=== PATIENT | male | born 1955 | race Caucasian/White ===

== ENCOUNTER 2017-03-14 09:09 | Emergency (ER) | payer OTHER ==
[2017-03-14] MEDS ORDERED: HYDROmorphone 0.5 MG/0.5 ML Syringe IVPUSH ONE (09:47)
--- NOTE | 2017-03-14 09:47 | EDM.PDOC ---
ED HPI LOWER BACK PAIN/INJURY - General Chief Complaint: Back Pain or Injury Stated Complaint: LOW BACK PAIN Time Seen by Provider: 03/14/17 09:39 Source of Information: Reports: Patient History Limitations: Reports: No limitations - History of Present Illness INITIAL COMMENTS - FREE TEXT/NARRATIVE: 61-year-old male presents to the ED for evaluation of low back pain particularly lower lumbar spine L4-L5 area bilaterally for the last week. Yesterday developed increasing pain in the right flank reading down to the right groin and he did not have abdominal pain associate his back pain up until yesterday. Hasn't been able to sleep for 2 days due to the intensity of the pain. No position is carpal. Urine appears darker than normal. He remains a bit queasy and hasn't been eating or drinking all that well. He has been moving lifting a lot of heavy things and felt that he just injured his lower back. No definitive falls or trauma to his lower back. He's had low back pain issues in the past but not for quite some time. Remote history of kidney stone right side 20 years ago. Does not have a constant feeling of need to void. States urine was triply yesterday however. No problems passing his bowels. Symptom Onset Date: 03/07/17 (Pain in the right flank and abdomen started yesterday. Pain in the low back started a week ago. Has been taking high doses of Motrin with minimal relief.) Timing/Duration: Reports: Day(s):, Gradual onset Location: Reports: lower Quality: Reports: Ache, Pressure, Throbbing Severity: moderate Place of Occurrence: home (Rates his pain a 7/10.) Improves with: Reports: None (Hurts even at rest.) Worsens with: Reports: Movement Context: Reports: lifting, bending. Denies: fall, MVC, trauma, chronic pain/ injury, sports injury Associated Symptoms: Reports: Malaise, Nausea/vomiting (Tired out from not sleeping the last 2 nights.), Problems urinating (Dribbling urine yesterday. Seemed to have better flow today.). 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) - Related Data Allergies/ADRs: Allergies Allergy/AdvReac Type Severity Reaction Status Date / Time No Known Allergies Allergy Verified 03/14/17 09:21 Home Meds: Home Meds Aspirin/Caffeine [Fabien Back & Body Caplet] 2 tab PO Q3H PRN 03/14/17 [History] Ibuprofen 600 mg PO Q6H PRN 03/14/17 [History] Meloxicam 15 mg PO DAILY #12 tablet 03/14/17 [Rx] Prednisone [IMW: predniSONE] 20 mg PO ASDIRECTED #18 tab 03/14/17 [Rx] oxyCODONE HCl/Acetaminophen [Percocet 5-325 mg Tablet] 1 - 2 each PO Q4H PRN # 20 tablet 03/14/17 [Rx] Past Medical History HEENT History: Reports: Impaired vision Other HEENT History: wears eyeglasses Respiratory History: Reports: COPD (Chronic cigarette smoker.), Pneumonia, recurrent Gastrointestinal History: Reports: Diverticulosis, Other (see below) Other Gastrointestinal History: diverticulitis, C-diff. Genitourinary History: Reports: Renal calculus Musculoskeletal History: Reports: Fracture Neurological History: Reports: Concussion Psychiatric History: Reports: Anxiety, Depression - Infectious Disease History Infectious Disease History: Reports: C-difficile, Chicken pox, Measles, Mumps - Past Surgical History HEENT Surgical History: Reports: Tonsillectomy GI Surgical History: Reports: Appendectomy Social & Family History - Tobacco Use Smoking Status *Q: Current Every Day Smoker Years of Tobacco use: 30 Packs/Tins Daily: 1 Second Hand Smoke Exposure: No - Caffeine Use Caffeine Use: Reports: Coffee - Alcohol Use Days Per Week of Alcohol Use: 1 Number of Drinks Per Day: 2 Total Drinks Per Week: 2 - Recreational Drug Use Recreational Drug Use: No ED ROS GENERAL - Review of Systems Review Of Systems: See Below Constitutional: Reports: malaise, fatigue, decreased appetite. Denies: fever, chills, weight loss HEENT: Reports: No symptoms Respiratory: Reports: No Symptoms Cardiovascular: Reports: Dyspnea on exertion. Denies: Blood pressure problem, Claudication, Edema, Lightheadedness, Orthopnea Endocrine: Reports: no symptoms GI/Abdominal: Reports: Abdominal pain (Right groin lower quadrant pain. Acute appreciates pain in the right upper back flank area and low back as well.), Nausea (Mild). Denies: Distension, Flatus, Hematemesis, Hematochezia, Melena, Stool incontinence, Vomiting : Reports: flank pain (Right side yesterday), pain. Denies: frequency, hematuria, urgency, urinary retention Musculoskeletal: Reports: back pain (Diffuse low back pain. Seems to radiate along the iliac crests bilaterally to both anterior hip areas.). Denies: leg pain, foot pain, joint pain, joint swelling Skin: Reports: no symptoms Neurological: Reports: No Symptoms ED EXAM,LOWER BACK PAIN/INJURY - Physical Exam Exam: See Below Exam Limited By: No limitations General Appearance: alert, WD/WN, anxious, mild distress Throat/Mouth: Normal inspection, Normal lips, Normal oropharynx Head: atraumatic, normocephalic Neck: normal inspection, supple, non-tender, full range of motion. No: lymphadenopathy (L), lymphadenopathy (R) Respiratory/Chest: lungs clear, chest non-tender, decreased breath sounds (To the lower 30%.). No: respiratory distress, rhonchi, wheezing Cardiovascular: normal peripheral pulses, regular rate, rhythm, no edema, no gallop, no murmur, no rub GI/Abdominal: normal bowel sounds, soft, non tender, no organomegaly, no abnormal bruit, abnormal bowel sounds: (Hypoactive bowel sounds), other (Aorta is easily palpable and I question whether he may be a mild aneurysm at the bifurcation area. The aorta appears to be deviated slightly to the right of the midline compared to normal.). No: rebound, tender Back Exam: normal inspection, other (Muscle spasm identified. Very minimal pain to palpation over the L4-L5 facet joints bilaterally. He does have pain on forward flexion with hands on the position. More pain when he tries to stand back up the right.). No: full range of motion, CVA tenderness (L), CVA tenderness (R) Extremities: normal inspection, normal range of motion, non-tender, no pedal edema, normal capillary refill Neurological: alert, normal mood/affect, normal dorsiflexion, CN II-XII intact, no motor/sensory deficits, oriented x 3 Course - Vital Signs Last Recorded V/S: Last Vital Signs Temp 37.3 C 03/14/17 09:10 Pulse 66 03/14/17 11:25 Resp 16 03/14/17 11:25 BP 136/86 03/14/17 11:25 Pulse Ox 98 03/14/17 11:25 - Orders/Labs/Meds Labs: Laboratory Tests 03/14/17 03/14/17 03/14/17 Range/Units 09:50 10:00 10:00 WBC 7.36 (4.23-9.07) K/mm3 RBC 5.55 (4.63-6.08) M/mm3 Hgb 16.9 (13.7-17.5) gm/L Hct 49.7 (40.1-51.0) % MCV 89.5 (79.0-92.2) fl MCH 30.5 (25.7-32.2) pg MCHC 34.0 (32.2-35.5) g/dl RDW Std Deviation 46.3 H (35.1-43.9) fL Plt Count 286 (163-337) K/mm3 MPV 10.0 (9.4-12.3) fl Neutrophils % (Manual) 62 H (40-60) % Band Neutrophils % 0 (0-10) % Lymphocytes % (Manual) 36 (20-40) % Atypical Lymphs % 0 % Monocytes % (Manual) 1 L (2-10) % Eosinophils % (Manual) 1 (0.8-7.0) % Basophils % (Manual) 0 L (0.2-1.2) Platelet Estimate Adequate RBC Morph Comment Normal Sodium 136 (136-145) mEq/L Potassium 4.4 (3.5-5.1) mEq/L Chloride 103 (98-107) mEq/L Carbon Dioxide 23 (21-32) mEq/L Anion Gap 14.4 (5-15) BUN 16 (7-18) mg/dL Creatinine 0.8 (0.7-1.3) mg/dL Est Cr Clr Drug Dosing 88.34 mL/min Estimated GFR (MDRD) > 60 (>60) mL/min BUN/Creatinine Ratio 20.0 H (14-18) Glucose 95 (80-115) mg/dL Calcium 8.6 (8.5-10.1) mg/dL Total Bilirubin 0.6 (0.2-1.0) mg/dL AST 22 (15-37) U/L ALT 31 (16-63) U/L Alkaline Phosphatase 83 (46-116) U/L C-Reactive Protein < 0.2 (<1.0) mg/dL Total Protein 7.3 (6.4-8.2) g/dl Albumin 4.0 (3.4-5.0) g/dl Globulin 3.3 gm/dL Albumin/Globulin Ratio 1.2 (1-2) Urine Color Yellow (Yellow) Urine Appearance Clear (Clear) Urine pH 5.5 (5.0-8.0) Ur Specific [place] 1.025 (1.005-1.030) Urine Protein 1+ H (Negative) Urine Glucose (UA) Negative (Negative) Urine Ketones Trace H (Negative) Urine Occult Blood Negative (Negative) Urine Nitrite Negative (Negative) Urine Bilirubin Negative (Negative) Urine Urobilinogen 0.2 (0.2-1.0) Ur Leukocyte Esterase Negative (Negative) Urine RBC Not seen (0-5) /hpf Urine WBC 0-5 (0-5) /hpf Ur Epithelial Cells Not seen (0-5) /hpf Urine Bacteria Few (FEW) /hpf Urine Mucus Few (FEW) /hpf Meds: Medications Discontinued Medications Generic Name Dose Route Start Last Admin Trade Name Freq PRN Reason Stop Dose Admin Hydromorphone HCl 0.5 mg 03/14/17 09:47 03/14/17 10:08 Dilaudid IVPUSH 03/14/17 09:48 0.5 mg ONETIME ONE Administration Dextrose/Sodium Chloride 1,000 mls @ 500 mls/hr 03/14/17 10:00 03/14/17 10:04 Dextrose 5%-Normal Saline IV 500 mls/hr ASDIRECTED AKI Administration Ketorolac Tromethamine 30 mg 03/14/17 10:00 03/14/17 10:17 Toradol IVPUSH 30 mg ONETIME AKI Administration Magnesium Citrate 210 ml 03/14/17 11:09 03/14/17 11:24 Citrate Of Magnesia PO 03/14/17 11:10 210 ml ONETIME ONE Administration Metoclopramide HCl 7.5 mg 03/14/17 09:48 03/14/17 10:06 Reglan IVPUSH 03/14/17 09:49 7.5 mg ONETIME ONE Administration - Radiology Interpretation Free Text/Narrative:: 61-year-old male presents the ED with a one-week history of diffuse low back pain which she equated to lifting a lot of things as he is getting ready to move. Yesterday he developed increased pain in the right flank and right lower abdomen area. His question whether he may have developed a recurrent kidney stones he had one 20 years ago. Urine has been darker than normal as well. He's been taking high-dose Motrin for pain in his back with very little relief. He finds the Motrin is now upset his stomach and he feels nauseated. Unable to sleep for the last 2 nights due to the severity of the pain. No position is carpal. No associated fever chills. Bowel movements are normal. Really can't state that he has urinary frequency or urgency. Examination reveals a benign abdomen other than suspicion for a mild aortic aneurysm at the bifurcation. Certainly no guarding or rebound tenderness. Mild costovertebral angle tenderness on the right side. Diffuse low back pain on palpation of L4-L5 facet joints without muscle spasm. Plan CT of his lumbar spine and CT abdomen and pelvis for kidney stone protocol to be done. Urinalysis ordered. Plan: IV for pain management. He will be started D5 normal saline at 250 mils per hour. Reglan 7.5 mg IV Dilaudid 0.5 mg IV and Toradol 30 mg IV for pain relief. - Re-Assessments/Exams Free Text/Narrative Re-Assessment/Exam: 03/14/17 10:49 CT of the abdomen and pelvis reveals normal-looking liver and pancreas and spleen. Both kidneys also appear to be normal with no obstruction of the ureters. There is increased stool throughout the right hemicolon and transverse colon which is likely causing his current right-sided abdominal pain. He does have a 2.8 cm small aneurysm of the distal aorta. He'll therefore need yearly followup on this by way of ultrasound. CT of the lumbar spine reveals degenerative changes in particular the L4-L5 disc space. There is some posterior lipping. There is no evidence of neuroma foraminal encroachment. No compression fractures identified. His lab work also proved to be normal with urinalysis showing no evidence of blood. Patella 7.36 with normal differential hemoglobin 16.9 . Hct is 49.7 this is suggesting a mild degree of hemoconcentration. Platelets are 286,000. Chemistry was normal urinalysis was normal. He requires treatment for his mechanical low back pain and a short course of prednisone 20 mg a.m. and p.m. x6 days and one tablet in the morning for further 6 days. and meloxicam once daily and Percocet 5 /325 mg tablets one or 2 every 4-6 hours needed for pain relief. Going to have him take 7 ounces of Citroma today to cleanse his bowel and then be on MiraLax powder 17 g daily to prevent further constipation while on pain meds. Departure - Departure Time of Disposition: 11:08 Disposition: Home, Self-Care 01 Condition: fair Clinical Impression: Constipation by delayed colonic transit Degenerative arthritis of lumbar spine Qualifiers: Spinal osteoarthritis complication: without myelopathy or radiculopathy Qualified Code(s): M47.816 - Spondylosis without myelopathy or radiculopathy, lumbar region Prescriptions: Meloxicam 15 mg PO DAILY #12 tablet Prednisone [IMW: predniSONE] 20 mg PO ASDIRECTED #18 tab oxyCODONE HCl/Acetaminophen [Percocet 5-325 mg Tablet] 1 - 2 each PO Q4H PRN # 20 tablet PRN Reason: pain relief. Instructions: Arthritis, [id number], Constipation, Adult, [id number] Referrals: Kendra Manley DO [Primary Care Provider] - Forms: ED Department Discharge Additional Instructions: Evaluation in the emergency department today in regards to right back and abdominal pain x2 days and diffuse low back pain for the last week. History was unclear in deciding whether or not there could be a kidney stone involved in low back pain issues. CT of the lumbar spine reveals degenerative changes particularly at L4-L5 levels with disc space narrowing. This is normal for age. There was no evidence of nerve root encroachment or spinal cord compression. Treatment therefore is anti-inflammatories and I am going to suggest meloxicam 15 mg once daily for 12 days. Prednisone 20 mg twice daily for 6 days with breakfast and supper and then once a day daily in the morning for another 6 days to take the inflammation and pain on her back. He medication Percocet 5 325 one or 2 every 4-6 hours needed for pain relief but nighttime so that she can sleep. CT of the abdomen did not reveal any signs of kidney stones in either kidney or obstruction of the ureter. It showed diverticula with no evidence of diverticulitis. he did reveal a increased amount of stool throughout the right hemicolon up to the kidney on the right side and under the liver. I suspect this is the cause of your right-sided abdominal pain and groin pain. Suggest treatment with Citroma 7 ounces by mouth next with 4-5 ounces of juice of choice taken by mouth once. This will start work in one to 2 hours and will often produce 45 albumin softener and ending in some degree of diarrhea. I would then suggest MiraLax powder 17 g once daily while on the pain medicine until back pain settles down. Of note a CT did identify that the aorta which is the large blood vessel in your body that were feeling earlier stomach is mildly enlarged ICU her developing a small aneurysm. It measures 2.8 cm. Normal is 2.5. We don't fix these until they get to be 4.5-5 cm in size. This may never happen. However you are advised to have yearly ultrasounds on your abdominal aorta to keep track of whether or not the aneurysm is enlarging or not.
[2017-03-14] MEDS ORDERED: Metoclopramide 10 MG/2 ML SDV IVPUSH ONE (09:48)
[2017-03-14] MEDS ORDERED: Dextrose 5%-0.9% NaCl 1,000 ML IV SCH (10:00)
[2017-03-14] MEDS ORDERED: Ketorolac 30 MG/ML SDV IVPUSH SCH (10:00)
--- NOTE | 2017-03-14 10:52 | CT ---
CT abdomen and pelvis Technique: Multiple axial sections were obtained from above the dome of the diaphragm inferiorly through the pubic symphysis. Intravenous and oral contrast has not been given. Study was performed as a ureteral stone protocol. Comparison: Previous CT abdomen and pelvis exam of 05/20/11. Findings: Minimal low density area is noted within the upper right kidney which is felt compatible with minimal cyst. This is stable from prior exam. Kidneys show no abnormal calcifications. No ureteral dilatation or ureteral stone is seen. Visualized lung bases shows nothing acute. Noncontrast appearance of the liver appears within normal limits. Spleen appears within normal limits. Adrenal glands show no nodule. Pancreas shows no discrete abnormality. Gallbladder shows no calcified gallstones. Distal aorta is mildly aneurysmal with an AP dimension of 2.8 cm. Atherosclerotic change is noted within the aorta and within the iliac vessels. No retroperitoneal adenopathy or mesenteric abnormalities are seen. Diverticuli are noted within the sigmoid colon. Bone window settings were reviewed showing disc space narrowing and vacuum phenomena as well as posterior and anterior spurring at L5-S1. Mild anterior endplate osteophytes are scattered throughout other portions of the cervical spine. Impression: 1. Distal abdominal aortic aneurysm with AP dimension of 2.8 cm. This is an interval change from prior CT exam from 2010. 2. Small stable cyst within the right kidney. 3. No renal calculi, ureteral dilatation or ureteral stone is seen. 4. Incidental sigmoid diverticuli with no inflammatory change. 5. Incidental degenerative change is seen within the spine. Diagnostic code #3
--- NOTE | 2017-03-14 10:52 | CT ---
CT lumbar spine Technique: Multiple axial sections were obtained from above the T11-12 disc inferiorly through the L5-S1 disc. Reconstructed sagittal and coronal images were reviewed. Comparison: No previous lumbar spine imaging. Findings: T11-12: Moderate disc space narrowing is noted. Endplate osteophytes are seen anteriorly. Posterior disc is preserved. Minimal disc bulge posterolaterally to the left side. No central canal stenosis is seen. Neural foramina are patent. T12-L1: Slight posterior disc space narrowing is noted. Posterior disc is preserved. No central canal stenosis or neural foraminal stenosis is seen. Minimal degenerative apophyseal change is seen. Minimal Schmorl node deformities are seen. L1-2: Mild degenerative apophyseal change is seen. Posterior disc maintains a concave margin. No central canal stenosis or neural foraminal stenosis is seen. L2-3: Minimal circumferential disc bulge is seen. Posterior disc maintains a concave margin. Minimal degenerative apophyseal change is seen. No central canal stenosis or neural foraminal stenosis is seen. L3-4: Minimal degenerative apophyseal change is seen. Slight circumferential disc bulge is present. Posterior disc maintains a minimally concave margin. No central canal stenosis or neural foraminal stenosis is seen. L4-5: Mild circumferential disc bulge is seen. No central canal stenosis is noted. Neural foramina are felt to be patent. Minimal degenerative apophyseal change is seen. L5-S1: Severe disc space narrowing is noted with vacuum phenomena. Diffuse circumferential disc bulge is present. Mild degenerative apophyseal change is noted. No central canal stenosis or neural foraminal stenosis is seen. No fracture is seen. No abnormal subluxation is seen. Impression: 1. Scattered degenerative change as noted above. Nothing acute is seen. Degenerative change most prominent at L5-S1. Diagnostic code #2
[2017-03-14] MEDS ORDERED: Magnesium Citrate Solution 296 ML Bottle PO ONE (11:09)
[2017-03-14 11:26] VITALS: BP 136/86
== END 2017-03-14 11:34 | disposition home or self-care (01) ==
LOC: JD.ED 09:09
DX: M47.816 Spondylosis without myelopathy or radiculopathy, lumbar region (principal); K59.01 Slow transit constipation; J44.9 Chronic obstructive pulmonary disease, unspecified; F41.8 Other specified anxiety disorders; Z90.49 Acquired absence of other specified parts of digestive tract; Z98.890 Other specified postprocedural states; Z79.899 Other long term (current) drug therapy; F17.210 Nicotine dependence, cigarettes, uncomplicated
CPT/HCPCS: 36415; 72131; 74176; 80053; 81001; 85025; 86140; 96361; 96374; 96375; 99284; A9270; J1170; J1885; J2765; J7042

== ENCOUNTER 2018-05-09 02:44 | Emergency (ER) | payer OTHER ==
[2018-05-09 02:52] VITALS: BP 152/98
[2018-05-09] MEDS ORDERED: Ondansetron 4 MG/2 ML SDV IVPUSH ONE (03:11)
[2018-05-09] MEDS ORDERED: HYDROmorphone 0.5 MG/0.5 ML SYRINGE IVPUSH ONE ×2 (03:11→04:32)
[2018-05-09] MEDS ORDERED: Sodium Chloride 0.9% 1,000 ML IV SCH (03:15)
--- NOTE | 2018-05-09 03:15 | EDM.PDOC ---
ED HPI GENERAL MEDICAL PROBLEM - General Chief Complaint: Abdominal Pain Stated Complaint: ABDOMINAL PAIN Time Seen by Provider: 05/09/18 03:06 Source of Information: Reports: Patient History Limitations: Reports: No Limitations - History of Present Illness INITIAL COMMENTS - FREE TEXT/NARRATIVE: This is a 63-year-old gentleman. Around 4 PM this evening he had onset of right upper quadrant abdominal pain that is progressively worsened until early this morning. He gets very sharp pain and constant pain in that right upper quadrant with nausea but he's had no vomiting. He has no history of ulcers. For lunch yesterday he had a hamburger. He didn't seem to have any problem at that time until 4 PM. He comes to the ER because the pain waxes and wanes and can be excruciating. He denies any fever or chills he denies any gallbladder problems in the past he denies any pancreatic problems the past or ulcers in the past. Right Upper Abdominal Pain Score (Numeric/FACES): 10 - Related Data Allergies Allergy/AdvReac Type Severity Reaction Status Date / Time No Known Allergies Allergy Verified 05/09/18 02:48 Home Meds: Home Meds Acetaminophen/oxyCODONE [Percocet 325-5 MG] 1 tab PO Q6H PRN #12 tab 05/09/18 [ Rx] Ondansetron HCl [Zofran] 4 mg PO Q6H #12 tablet 05/09/18 [Rx] atorvaSTATin [Lipitor] 20 mg PO DAILY 05/09/18 [History] Past Medical History HEENT History: Reports: Impaired Vision Other HEENT History: wears eyeglasses Respiratory History: Reports: COPD, Pneumonia, Recurrent Gastrointestinal History: Reports: Diverticulosis, Other (See Below) Other Gastrointestinal History: diverticulitis, C-diff. Genitourinary History: Reports: Renal Calculus Musculoskeletal History: Reports: Fracture Neurological History: Reports: Concussion Psychiatric History: Reports: Anxiety, Depression - Infectious Disease History Infectious Disease History: Reports: C-Difficile, Chicken Pox, Measles, Mumps - Past Surgical History HEENT Surgical History: Reports: Tonsillectomy GI Surgical History: Reports: Appendectomy Social & Family History - Tobacco Use Smoking Status *Q: Unknown Ever Smoked - Caffeine Use Caffeine Use: Reports: Coffee ED ROS GENERAL - Review of Systems Review Of Systems: See Below Constitutional: Denies: Fever, Chills HEENT: Reports: No Symptoms Respiratory: Reports: No Symptoms Cardiovascular: Reports: No Symptoms Endocrine: Reports: No Symptoms GI/Abdominal: Reports: Abdominal Pain, Nausea. Denies: Diarrhea, Vomiting : Reports: No Symptoms Musculoskeletal: Reports: No Symptoms Skin: Reports: No Symptoms Neurological: Reports: No Symptoms Psychiatric: Reports: Anxiety Hematologic/Lymphatic: Reports: No Symptoms ED EXAM, GI/ABD - Physical Exam Exam: See Below Exam Limited By: No Limitations General Appearance: Alert, WD/WN, Mild Distress Eyes: Bilateral: Normal Appearance Ears: Normal External Exam Nose: Normal Inspection Throat/Mouth: Normal Inspection, Normal Lips, Normal Voice, No Airway Compromise Head: Normocephalic Neck: Supple Respiratory/Chest: No Respiratory Distress, Lungs Clear Cardiovascular: Regular Rate, Rhythm, No Murmur GI/Abdominal Exam: Soft, Other (Very tender in the right upper quadrant with positive Saucedo sign, bowel sounds are quiet, the other quadrants do not appear to be tender on palpation) Back Exam: Full Range of Motion Extremities: Normal Inspection, Normal Range of Motion Neurological: Alert, Oriented Psychiatric: Anxious Skin Exam: Warm, Dry. No: Diaphoretic Course - Vital Signs Last Recorded V/S: Last Vital Signs Temp 98.5 F 05/09/18 02:50 Pulse 92 05/09/18 02:50 Resp 18 05/09/18 02:50 BP 152/98 H 05/09/18 02:50 Pulse Ox 100 05/09/18 02:50 - Orders/Labs/Meds Orders: Active Orders 24 hr Category Date Time Status Abdomen Ltd [US] Stat Exams 05/09/18 03:21 Taken Sodium Chloride 0.9% [Normal Saline] 1,000 ml Med 05/09/18 03:15 Active IV ASDIRECTED Medication Orders Sodium Chloride (Normal Saline) 1,000 mls @ 1,000 mls/hr IV ASDIRECTED AKI Last Admin: 05/09/18 03:22 Dose: 1,000 mls/hr Labs: Laboratory Tests 05/09/18 05/09/18 Range/Units 03:15 03:15 WBC 9.32 H (4.23-9.07) K/mm3 RBC 5.42 (4.63-6.08) M/mm3 Hgb 16.8 (13.7-17.5) gm/L Hct 48.1 (40.1-51.0) % MCV 88.7 (79.0-92.2) fl MCH 31.0 (25.7-32.2) pg MCHC 34.9 (32.2-35.5) g/dl RDW Std Deviation 44.4 H (35.1-43.9) fL Plt Count 253 (163-337) K/mm3 MPV 9.9 (9.4-12.3) fl Neut % (Auto) 87.3 H (34.0-67.9) % Lymph % (Auto) 7.9 L (21.8-53.1) % Monroe % (Auto) 4.4 L (5.3-12.2) % Eos % (Auto) 0.1 L (0.8-7.0) Baso % (Auto) 0.2 (0.1-1.2) % Neut # (Auto) 8.13 H (1.78-5.38) K/mm3 Lymph # (Auto) 0.74 L (1.32-3.57) K/mm3 Monroe # (Auto) 0.41 (0.30-0.82) K/mm3 Eos # (Auto) 0.01 L (0.04-0.54) K/mm3 Baso # (Auto) 0.02 (0.01-0.08) K/mm3 Manual Slide Review Normal smear Sodium 138 (136-145) mEq/L Potassium 4.1 (3.5-5.1) mEq/L Chloride 102 (98-107) mEq/L Carbon Dioxide 24 (21-32) mEq/L Anion Gap 16.1 H (5-15) BUN 14 (7-18) mg/dL Creatinine 0.9 (0.7-1.3) mg/dL Est Cr Clr Drug Dosing 75.46 mL/min Estimated GFR (MDRD) > 60 (>60) mL/min BUN/Creatinine Ratio 15.6 (14-18) Glucose 149 H (80-115) mg/dL Calcium 9.0 (8.5-10.1) mg/dL Total Bilirubin 0.7 (0.2-1.0) mg/dL AST 16 (15-37) U/L ALT 25 (16-63) U/L Alkaline Phosphatase 79 (46-116) U/L Total Protein 7.3 (6.4-8.2) g/dl Albumin 4.1 (3.4-5.0) g/dl Globulin 3.2 gm/dL Albumin/Globulin Ratio 1.3 (1-2) Lipase 259 (73-393) U/L Meds: Medications Generic Name Dose Route Start Last Admin Trade Name Freq PRN Reason Stop Dose Admin Sodium Chloride 1,000 mls @ 1,000 mls/hr 05/09/18 03:15 05/09/18 03:22 Normal Saline IV 1,000 mls/hr ASDIRECTED AKI Administration Discontinued Medications Generic Name Dose Route Start Last Admin Trade Name Freq PRN Reason Stop Dose Admin Hydromorphone HCl 0.5 mg 05/09/18 03:11 05/09/18 03:23 Dilaudid IVPUSH 05/09/18 03:12 0.5 mg ONETIME ONE Administration Hydromorphone HCl 0.5 mg 05/09/18 04:32 05/09/18 04:39 Dilaudid IVPUSH 05/09/18 04:33 0.5 mg ONETIME ONE Administration Ondansetron HCl 4 mg 05/09/18 03:11 05/09/18 03:23 Zofran IVPUSH 05/09/18 03:12 4 mg ONETIME ONE Administration - Radiology Interpretation Free Text/Narrative:: Ultrasound of the abdomen does not show any acute gallbladder problems or pancreatic problems. As no hydronephrosis. He does have a 3 cm infrarenal abdominal aortic aneurysm was also seen on a recent CAT scan in March 2017 and it does not appear to be changed. - Re-Assessments/Exams Free Text/Narrative Re-Assessment/Exam: 05/09/18 06:00 I spoke to the patient regarding my suspicion that this is a gallbladder since he had a positive Saucedo sign on the initial examination. Even though he does not have gallstones he could have a malfunctioning gallbladder that spasms and causes pain in the knees to get a HIDA scan done as an outpatient. I encouraged him to follow up with his family physician to get that HIDA scan done. I also cautioned him about eating any sort a greasy oily or fried foods and if his symptoms seem to worsen and not controlled by medications he needs to return to the ER. Departure - Departure Time of Disposition: 06:01 Disposition: Home, Self-Care 01 Condition: Fair Clinical Impression: Right upper quadrant abdominal pain - Discharge Information Prescriptions: Acetaminophen/oxyCODONE [Percocet 325-5 MG] 1 tab PO Q6H PRN #12 tab PRN Reason: Pain Ondansetron HCl [Zofran] 4 mg PO Q6H #12 tablet Referrals: Kendra Manley DO [Primary Care Provider] - Forms: ED Department Discharge Additional Instructions: You need to see your family doctor and have him order a HIDA scan to look at your gallbladder function, since you do not have gallstones and your physical exam suggest a gallbladder problem it is because you probably have a diseased gallbladder and a HIDA scan will see how it functions or not, take the medicine for nausea and pain as needed, you must avoid all greasy, fried and oily foods since it will cause the gallbladder to spasm and give you pain, return to the ER if your symptoms worsen and the medicines are not helping Please be certain that your family doctor knows that you will have a 3 cm infrarenal abdominal aortic aneurysm that appears to be stable that was seen on a CAT scan in March 2017 and on the ultrasound done today and it needs to be monitored. - My Orders Last 24 Hours: My Active Orders 05/09/18 03:15 Sodium Chloride 0.9% [Normal Saline] 1,000 ml IV ASDIRECTED 05/09/18 03:21 Abdomen Ltd [US] Stat - Assessment/Plan Last 24 Hours: My Active Orders 05/09/18 03:15 Sodium Chloride 0.9% [Normal Saline] 1,000 ml IV ASDIRECTED 05/09/18 03:21 Abdomen Ltd [US] Stat
--- NOTE | 2018-05-11 07:29 | US ---
Limited abdominal ultrasound: Multiple real-time images were obtained of the upper right abdomen. Comparison: Previous abdominal and pelvic CT exam of 03/14/17. Liver shows no focal parenchymal abnormality. Pancreas appears within normal limits. Right kidney shows no hydronephrosis. Right kidney contains a small cortical cyst measuring 7 mm. Right kidney has a length of 11.2 cm. Gallbladder shows no shadowing gallstones. Gallbladder not optimally distended which causes accentuation of gallbladder folds. No gallbladder wall thickening believed to be present. No biliary duct dilatation is seen. Portal vein shows normal hepatopedal flow. Atherosclerotic change is seen within the aorta. Aorta is slightly aneurysmal with aneurysm seen on CT study not optimally visualized on this exam. Impression: 1. Incidental findings. Nothing acute is identified on right upper quadrant abdominal ultrasound exam. Diagnostic code #2 I agree with preliminary report from [facility], finalized at 05/09/18, 6:50 AM Central Time
== END 2018-05-09 06:10 | disposition home or self-care (01) ==
LOC: JD.ED 02:44
DX: R10.11 Right upper quadrant pain (principal); J44.9 Chronic obstructive pulmonary disease, unspecified; F41.9 Anxiety disorder, unspecified; F32.9 Major depressive disorder, single episode, unspecified; Z79.899 Other long term (current) drug therapy
CPT/HCPCS: 36415; 76705; 80053; 83690; 85025; 96361; 96374; 96375; 99284; J1170; J2405; J7040